=== PATIENT | male | born 1965 | race Hispanic/Latino ===

== ENCOUNTER 2025-06-19 14:20 | Observation (INO) | payer OTHER ==
[~2025-06-19 14:20] MED LIST: Iopamidol 300 61% 100 ML VIAL FS ONE
[2025-06-19 15:02] LABS: #Basophils 0.08 10x3/uL (0.0-0.2); #Eosinophils 0.10 10x3/uL (0.0-0.5); #Monocytes 0.59 10x3/uL (0.0-1.1); #Neutrophils 4.74 10x3/uL (1.5-8.4); %Basophils 0.9 % (0.0-2.0); %Eosinophils 1.1 % (0.0-6.0); %Lymphocytes 37.3 % (18.0-47.0); %Monocytes 6.7 % (0.0-10.0); %Neutrophils 53.8 % (40.0-75.0); Hematocrit 42.4 % (38.8-50.0); Hemoglobin 14.4 g/dL (13.5-17.5); Mean Corpuscular Hemoglobin 30.1 pg (27.0-33.0); Mean Corpuscular Volume 88.5 fL (81.2-95.1); Platelet Count 208 10x3/uL (150-450); Red Blood Cell (RBC) Count 4.79 10x6/uL (4.32-5.72); White Blood Cell (WBC) Count 8.82 10x3/uL (3.5-10.5)
[2025-06-19 15:13] LABS: ALT (SGPT) 101 U/L (Less than 45); AST (SGOT) 68 U/L (11-34); Albumin 4.1 g/dL (3.1-4.5); Alkaline Phosphatase 89 U/L (40-110); Anion Gap 15 mmol/L (10-20); BUN (Urea Nitrogen) 10 mg/dL (8.4-25.7); Bilirubin, Total 0.8 mg/dL (0.3-1.2); Calc. Creatinine Clearance 0 mL/min (70-130); Calcium 9.3 mg/dL (7.8-10.44); Carbon Dioxide 22 mmol/L (22-29); Chloride 109 mmol/L (98-107); Globulin 3.9 g/dL (2.4-3.5); Glucose 116 mg/dL (70-105); Lipase 51 U/L (8-78); Potassium 4.2 mmol/L (3.5-5.1); Sodium 142 mmol/L (136-145)
[2025-06-19] MEDS ORDERED: Milk Of Magnesia 30 ML UDCUP ONE (15:14)
[2025-06-19] MEDS ORDERED: Lidocaine Viscous Sol 2% 15 ml UD Cup ONE (15:14)
[2025-06-19 15:19] LABS: Troponin I 0.012 ng/mL (< 0.028)
[2025-06-19 15:47] LABS: Glucose, Urine (Dipstick) Normal (Negative); Leukocyte Negative (Negative); Protein, Urine (Dipstick) 30 mg/dl (Neg-Trace); Specific Gravity, Urine 1.025 (1.005-1.030)
[2025-06-19 16:26] LABS: Bacteria/HPF 1+ HPF (None Seen); CAUTI Indications for Culture Pelvic or flank pain; Mucous/LPF 3+ LPF (<2+); RBC/HPF 0-3 HPF (0-3); WBC/HPF 0-3 HPF (0-3)
[2025-06-19 16:29] LABS: Urine Culture Reflex No No
[2025-06-19 17:53] LABS: Troponin I 0.010 ng/mL (< 0.028)
[2025-06-19] MEDS ORDERED: Dextrose 50% Abboject 50 ML SYRINGE SLOW IVP PRN (18:34)
[2025-06-19] MEDS ORDERED: Glucagon 1 MG/ML KIT IM PRN (18:34)
[2025-06-19] MEDS ORDERED: Acetaminophen 325 MG TAB PO PRN (18:34)
[2025-06-19] MEDS ORDERED: Melatonin 3 MG TAB PO PRN (18:34)
[2025-06-19] MEDS ORDERED: Nitroglycerin 0.4 MG TAB (25 Tab Bottle) SL PRN (18:34)
[2025-06-19] MEDS ORDERED: Senokot S 8.6-50 MG TAB PO PRN (18:34)
[2025-06-19 20:20] VITALS: BMI 33.1
[2025-06-19] MEDS: Famotidine 20 MG TAB PO SCH (21:12)
[2025-06-19 21:45] LABS: Troponin I Less than 0.010 ng/mL (< 0.028)
[2025-06-20 04:04] LABS: Anion Gap 11 mmol/L (10-20); BUN (Urea Nitrogen) 10 mg/dL (8.4-25.7); Calc. Creatinine Clearance 129 mL/min (70-130); Calcium 8.7 mg/dL (7.8-10.44); Carbon Dioxide 24 mmol/L (22-29); Chloride 108 mmol/L (98-107); Glucose 106 mg/dL (70-105); Potassium 3.9 mmol/L (3.5-5.1); Sodium 139 mmol/L (136-145)
[2025-06-20] MEDS: Aspirin Chewable 81 MG TAB PO SCH (08:11)
[2025-06-20] MEDS: Enoxaparin 40 MG (0.4 mL) SYRINGE SC SCH (08:11)
[2025-06-20] MEDS: Lisinopril 10 MG TAB PO SCH (09:09)
[2025-06-20] MEDS ORDERED: hydrALAZINE 20 MG/ML VIAL SLOW IVP PRN (11:33)
[2025-06-20 16:17] VITALS: BP 146/90; TEMP 98.3
[2025-06-20] MEDS ORDERED: Carvedilol 6.25 MG TAB PO SCH (17:00)
[2025-06-21] MEDS ORDERED: Pantoprazole 40 MG DR.TAB PO SCH (09:00)
== END 2025-06-20 17:25 ==
LOC: EEVIPCON 14:20 → CSHERS 14:20 → CSHTELE 18:00
PROVIDERS: ADMIT Hospitalist; ATTEND Hospitalist
PROC: B245ZZ4 Ultrasonography of Left Heart, Transesophageal (ICD-10-PCS; principal; 2025-06-20)
DX: R07.89 Other chest pain (principal); E78.5 Hyperlipidemia, unspecified; E11.9 Type 2 diabetes mellitus without complications; I11.0 Hypertensive heart disease with heart failure; I50.9 Heart failure, unspecified; Z79.84 Long term (current) use of oral hypoglycemic drugs; Z79.899 Other long term (current) drug therapy; E03.9 Hypothyroidism, unspecified; Z91.010 Allergy to peanuts; Z88.6 Allergy status to analgesic agent
CPT/HCPCS: 36415; 36416; 71045; 74177; 80048; 80053; 81001; 83690; 83880; 84484; 85025; 87428; 93005; 93306; 94760; J1650; Q9967